=== PATIENT | male | born 1965 | race Caucasian/White ===

== ENCOUNTER 2023-02-24 06:00 | Day surgery (SDC) | payer BC ==
[~2023-02-24] VITALS: Ht 167.6 cm; Wt 84.1 kg
[2023-02-24 08:33] VITALS: O2SAT 98
[2023-02-24] MEDS ORDERED: MEPERIDINE HCL/PF 25 MG/ML DISP.SYRIN IVP PRN (10:15)
[2023-02-24] MEDS ORDERED: hydrALAZINE HCL 20 MG/ML VIAL IVP PRN (10:15)
[2023-02-24] MEDS ORDERED: LR 1,000 ML IV SCH (10:15)
[2023-02-24] MEDS ORDERED: HYDROmorphone 1 MG/ML INJ. CARTRIDGE IVP PRN ×2 (10:15)
[2023-02-24] MEDS ORDERED: METOCLOPRAMIDE HCL 10 MG/2 ML VIAL IVP PRN (10:15)
[2023-02-24] MEDS ORDERED: LABETALOL 100 MG/ 20ML VIAL IVP PRN (10:15)
[2023-02-24] MEDS ORDERED: ACETAMINOPHEN I.V. 1000 MG 100 ML IV ONE (10:25)
[2023-02-24] MEDS ORDERED: OXYMETAZOLINE HCL 0.05% NASAL SPRAY NS ONE (11:56)
[2023-02-24] MEDS ORDERED: LIDOCAINE/EPI 1% 1:100000 20 ML VIAL ONE (11:56)
[2023-02-24] MEDS ORDERED: MIDAZOLAM HCL 5 MG/ML VIAL (VERSED) IV ONE (11:56)
[2023-02-24] MEDS ORDERED: PROPOFOL 200MG/ 20ML VIAL (DIPRIVAN) IV ONE (11:56)
[2023-02-24] MEDS ORDERED: ONDANSETRON HCL 4 MG/2 ML VIAL ONE (11:56)
[2023-02-24] MEDS ORDERED: ROCURONIUM BROMIDE 10 MG/ML (ZEMURON) ONE (11:56)
[2023-02-24] MEDS ORDERED: LR 1,000 ML IV.SOLN IV ONE (11:56)
[2023-02-24] MEDS ORDERED: NS IRRIG SOLN 1000 ML IR ONE (11:56)
[2023-02-24] MEDS ORDERED: fentaNYL CITRATE/PF 100 MCG/2 ML AMP ONE (11:56)
[2023-02-24] MEDS ORDERED: DESFLURANE 15 MIN GAS INH ONE (11:56)
[2023-02-24] MEDS ORDERED: DEXAMETHASONE SOD PHOSPHATE 4 MG/ML VIAL ONE (11:56)
[2023-02-24] MEDS ORDERED: NS 500 ML IV.SOLN IV ONE (11:56)
[2023-02-24] MEDS ORDERED: LIDOCAINE JECT 2% PF 100 MG/5ML SYRINGE ONE (11:56)
[2023-02-24] MEDS ORDERED: SUGAMMADEX SODIUM 200 MG/2 ML VIAL IV ONE (11:56)
[2023-02-24 13:38] VITALS: BP_SYST 148; PULSE 80; RESP 20
== END 2023-02-24 15:02 | disposition home or self-care (01) ==
LOC: SMU 06:00 → SDS 06:00
PROVIDERS: ATTEND Otolaryngology
DX: J32.9 Chronic sinusitis, unspecified (principal); D38.5 Neoplasm of uncertain behavior of other respiratory organs; R35.1 Nocturia; J33.8 Other polyp of sinus; J33.9 Nasal polyp, unspecified; R22.0 Localized swelling, mass and lump, head; I10 Essential (primary) hypertension; J45.909 Unspecified asthma, uncomplicated; Z87.891 Personal history of nicotine dependence
CPT/HCPCS: 31298; 31256; 31299; 87070; 87075; 87101; 88305; 88311; J3490; J1100; J2250; J2405; J2704; J3010; J7120; J7040; C1726; J0131; 88304